=== PATIENT | male | born 1950 | race Caucasian/White ===

== ENCOUNTER → 2017-06-03 | Outpatient (REF) | payer MEDICARE, BC ==
[~2017-06-03] MED LIST: ASPI-1471 PO; ASPI-715 PO; CYAN25004 PO; DEXL60CA6 PO; DOCU-416 PO; FOLI-48 PO; HCTZ; LIS20 PO; LISI-374 PO; MECL25TA9 PO; METF-410 PO; METF-420 PO; NAPR220C12 PO; NEW CHOLESTEROL MED; OMEP-218 PO; ONDA4TAB PO; OXYC-854 PO; PRED20TA6 PO; SIMV-44 PO; SIMV-54 PO; TAMS0.4C25 PO
== END ==
LOC: ZZSENDIN 15:49
PROVIDERS: ATTEND Nurse Practitioner
DX: I25.118 Atherosclerotic heart disease of native coronary artery with other forms of angina pectoris (principal)
CPT/HCPCS: 82310; 82374; 82435; 82565; 82947; 84132; 84295; 84520

== ENCOUNTER → 2017-06-15 | Outpatient (CLI) | payer MEDICARE, BC | LOC: LAB 10:17 | PROVIDERS: ATTEND Nurse Practitioner | DX: I25.118 Atherosclerotic heart disease of native coronary artery with other forms of angina pectoris (principal) | CPT/HCPCS: 36415; 82310; 82374; 82435; 82565; 82947; 84132; 84295; 84520 ==

== ENCOUNTER 2017-06-19 11:28 | Emergency (ER) | payer MEDICARE, BC ==
[~2017-06-19] VITALS: Ht 5.1 cm; Wt 117.0 kg
[2017-06-19 11:33] VITALS: BP 154/91
--- NOTE | 2017-06-19 11:37 | ER Report ---
History and Physical Time Seen By MD: 11:36 Hx. of Stated Complaint: OPEN HEART SURGERY 4 WEEKS AGO. STATES HE FEELS RATTLY IN HIS LUNGS AND DOESN'T FEEL GOOD. NOT CURRENTLY SOB HPI/ROS CHIEF COMPLAINT: Cough, chest discomfort HISTORY OF PRESENT ILLNESS: 66-year-old male patient presents to emergency room with complaint of cough, chest discomfort. Patient states that this been going on since yesterday. He states that initially morning just started out of the blue. He states that when he coughs he coughs up a clear to white mucus. He states that he's not had any fevers, chills, nausea, vomiting or diarrhea. States his been eating and drinking just fine. He states that he has stopped taking any medication for this. Patient states that he is 4 weeks status post 2 vessel CABG. He states that he does have an appointment with his surgeon tomorrow. He is concerned because he is feeling "rattley" in his lungs. Patient states he does not feel short of breath. He states he's been using the pillow frequently to help support his chest when he coughs. REVIEW OF SYSTEMS: Respiratory: As noted above Cardiovascular: As noted above Gastrointestinal: No vomiting, no abdominal pain. Musculoskeletal: No back pain. Allergies: Coded Allergies: Sulfa (Sulfonamide Antibiotics) (Verified Allergy, Intermediate, LIVER ENZYMES ELEVATE, 06/19/17) Home Meds Active Scripts Metformin Hcl (METFORMIN HCL) 1,000 Mg Tablet, 1 TAB PO BID, #180 TAB Prov:ROSANNE LOVING MD 01/25/17 Reported Medications Metoprolol Tartrate (METOPROLOL TARTRATE) 25 Mg Tablet, 1 TAB PO BID, TAB 06/19/17 Ondansetron Hcl (ZOFRAN) 4 Mg Tablet, 4 MG PO Q12H, TAB 06/19/17 Dexlansoprazole (DEXILANT) 60 Mg Franky., 60 MG PO QAM 10/13/15 Simvastatin (SIMVASTATIN) 40 Mg Tablet, 40 MG PO QHS, #60 01/06/15 Tamsulosin Hcl (FLOMAX) 0.4 Mg Cap.er.24h, 0.4 MG PO DAILY 07/08/14 Discontinued Reported Medications Lisinopril (Lisinopril) 40 Mg Tablet, 40 MG PO QAM, 0 Refills 04/05/11 Past Medical/Surgical History Patient has a past medical history of hypertension, hyperlipidemia, reflux, BPH , arthritis, diabetes, actinic keratosis, alcohol use. Patient has a surgical history of LASIK surgery, tonsillectomy, IND of knee infection, colonoscopy, EGD, cholecystectomy, appendectomy, 2 vessel CABG. Patient has a family medical history of cancer. Reviewed Nurses Notes: Yes Hx Smoking: No (SMOKED < 1/2 PPD ABOUT 14 YEARS OFF AND ON) Smoking Status: Former Smoker Exposure to Second Hand Smoke?: No Hx Substance Use Disorder: No Hx Alcohol Use: Yes Constitutional Vital Sign - Last 24 Hours 06/19/17 06/19/17 06/19/17 11:32 11:33 11:43 Temp 98.5 Pulse 80 80 Resp 22 20 B/P (MAP) 154/91 (112) 154/91 Pulse Ox 96 94 O2 Delivery Room Air Physical Exam General Appearance: The patient is alert, has no immediate need for airway protection and no current signs of toxicity. ENT: Tympanic membranes are pearly-ventura, auditory canals are patent, mucous membranes are moist. Respiratory: Chest is non tender, lungs are clear to auscultation. Cardiac: regular rate and rhythm Gastrointestinal: Abdomen is soft and non tender, no masses, bowel sounds normal. Musculoskeletal: Neck: Neck is supple and non tender. Extremities have full range of motion and are non tender. Skin: No rashes or lesions. DIFFERENTIAL DIAGNOSIS: After history and physical exam differential diagnosis was considered for influenza, pneumonia, bronchitis, viral syndrome. Medical Decision Making Data Points Result Diagram: 06/19/17 1146 06/19/17 1146 Laboratory Hematology Test 06/19/17 11:46 Red Blood Count 4.33 M/uL (4.00-5.60) Mean Corpuscular Volume 81.0 fL (80.0-96.0) Mean Corpuscular Hemoglobin 26.6 pg (26.0-33.0) Mean Corpuscular Hemoglobin Concent 32.9 g/dL (32.0-36.0) Red Cell Distribution Width 14.6 % (11.5-14.5) Mean Platelet Volume 7.0 fL (7.2-11.1) Neutrophils (%) (Auto) 65.0 % (39.4-72.5) Lymphocytes (%) (Auto) 20.1 % (17.6-49.6) Monocytes (%) (Auto) 10.8 % (4.1-12.4) Eosinophils (%) (Auto) 3.5 % (0.4-6.7) Basophils (%) (Auto) 0.6 % (0.3-1.4) Nucleated RBC Relative Count (auto) 0.0 /100WBC Neutrophils # (Auto) 3.4 K/uL (2.0-7.4) Lymphocytes # (Auto) 1.0 K/uL (1.3-3.6) Monocytes # (Auto) 0.6 K/uL (0.3-1.0) Eosinophils # (Auto) 0.2 K/uL (0.0-0.5) Basophils # (Auto) 0.0 K/uL (0.0-0.1) Nucleated RBC Absolute Count (auto) 0.00 K/uL D-Dimer Quantitative (PE/DVT) 2.45 ug/ml (0-0.50) Sodium Level 137 mmol/L (137-145) Potassium Level 4.3 mmol/L (3.5-5.0) Chloride Level 98 mmol/L (98-107) Carbon Dioxide Level 24 mmol/L (22-30) Blood Urea Nitrogen 16 mg/dl (9-21) Creatinine 1.10 mg/dl (0.66-1.25) Glomerular Filtration Rate Calc > 60.0 Random Glucose 108 mg/dl (75-110) Calcium Level 9.4 mg/dl (8.4-10.2) Total Bilirubin 0.5 mg/dl (0.2-1.3) Aspartate Amino Transf (AST/SGOT) 28 U/L (0-35) Alanine Aminotransferase (ALT/SGPT) 38 U/L (0-56) Alkaline Phosphatase 73 U/L (0-126) Troponin I < 0.012 ng/ml B-Type Natriuretic Peptide 88 pg/ml (0-100) Total Protein 7.9 gm/dl (6.3-8.2) Albumin 4.2 g/dl (3.5-5.0) Influenza Virus Type A (PCR) Negative (NEGATIVE) Influenza Virus Type B (PCR) Negative (NEGATIVE) Chemistry Test 06/19/17 11:46 White Blood Count 5.2 k/uL (4.5-11.0) Red Blood Count 4.33 M/uL (4.00-5.60) Hemoglobin 11.5 g/dL (14.0-18.0) Hematocrit 35.0 % (42.0-52.0) Mean Corpuscular Volume 81.0 fL (80.0-96.0) Mean Corpuscular Hemoglobin 26.6 pg (26.0-33.0) Mean Corpuscular Hemoglobin Concent 32.9 g/dL (32.0-36.0) Red Cell Distribution Width 14.6 % (11.5-14.5) Platelet Count 220 K/uL (150-450) Mean Platelet Volume 7.0 fL (7.2-11.1) Neutrophils (%) (Auto) 65.0 % (39.4-72.5) Lymphocytes (%) (Auto) 20.1 % (17.6-49.6) Monocytes (%) (Auto) 10.8 % (4.1-12.4) Eosinophils (%) (Auto) 3.5 % (0.4-6.7) Basophils (%) (Auto) 0.6 % (0.3-1.4) Nucleated RBC Relative Count (auto) 0.0 /100WBC Neutrophils # (Auto) 3.4 K/uL (2.0-7.4) Lymphocytes # (Auto) 1.0 K/uL (1.3-3.6) Monocytes # (Auto) 0.6 K/uL (0.3-1.0) Eosinophils # (Auto) 0.2 K/uL (0.0-0.5) Basophils # (Auto) 0.0 K/uL (0.0-0.1) Nucleated RBC Absolute Count (auto) 0.00 K/uL D-Dimer Quantitative (PE/DVT) 2.45 ug/ml (0-0.50) Glomerular Filtration Rate Calc > 60.0 Calcium Level 9.4 mg/dl (8.4-10.2) Total Bilirubin 0.5 mg/dl (0.2-1.3) Aspartate Amino Transf (AST/SGOT) 28 U/L (0-35) Alanine Aminotransferase (ALT/SGPT) 38 U/L (0-56) Alkaline Phosphatase 73 U/L (0-126) Troponin I < 0.012 ng/ml B-Type Natriuretic Peptide 88 pg/ml (0-100) Total Protein 7.9 gm/dl (6.3-8.2) Albumin 4.2 g/dl (3.5-5.0) Influenza Virus Type A (PCR) Negative (NEGATIVE) Influenza Virus Type B (PCR) Negative (NEGATIVE) Coagulation Test 06/19/17 11:46 D-Dimer Quantitative (PE/DVT) 2.45 ug/ml EKG/Imaging EKG Interpretation 12 lead EKG: Rhythm: normal sinus rhythm with a ventricular rate of 81 bpm [place]: normal QRS: normal ST segments: normal Imaging EXAMINATION: CT CHEST PULMONARY ANGIOGRAM COMPARISON: None available HISTORY: Chest pain. Heart surgery 4 weeks ago. Elevated d-dimer. PROCEDURE: Pulmonary arterial phase imaging of the chest with 100 mL intravenous Isovue 370. Reconstruction of the source data set includes multiplanar 2D in the sagittal and coronal planes, and 3D reconstructed coronal slab MIP series. One of the following dose optimization techniques was utilized in the performance of this exam: Automated exposure control; adjustment of the mA and/ or kV according to the patient's size; or use of an iterative reconstruction technique. Specific details can be referenced in the facility's radiology CT exam operational policy. FINDINGS: Pulmonary vasculature: There is good contrast opacification of the pulmonary arterial system. No pulmonary embolism. Main pulmonary artery size is normal. Cardiac and mediastinum: Cardiac chamber size is within normal limits. Small homogeneous fairly low-attenuation pericardial effusion. Advanced coronary calcifications. Left internal mammary artery bypass. Trace retrosternal fluid. No discrete hematoma. There a few prominent nonspecific but likely reactive mediastinal lymph nodes. Lungs and pleura: Trace left pleural effusion. Minimal volume loss. No consolidation or nodule. No pneumothorax or edema. Airways: The central airways are patent. Upper abdomen: No evidence of acute disease within the visualized upper abdomen. Osseous structures: Midline sternotomy is intact with no evidence of dehiscence. No acute osseous abnormality. Incompletely visualized cervical spine fusion. Diffuse idiopathic skeletal hyperostosis. IMPRESSION: 1. No pulmonary embolism. 2. Mediastinal postoperative changes compatible with a recent sternotomy and coronary artery bypass as further described above. No definite CT findings of postoperative complication. 3. Trace left pleural effusion. 4. Additional nonacute findings as detailed above. Report Dictated By: Jean Hsu MD at 06/19/2017 12:50 PM Report E-Signed By: Jean Hsu MD at 06/19/2017 1:02 PM Examination: CHEST PA AND LAT Comparison: 07/08/2014. History: Chest Pain Findings: Cardiac silhouette is mildly enlarged. Sternotomy wires are midline and intact. No consolidation, nodule, or acute peribronchial inflammation. No pneumothorax, edema, or effusion. Cervical spine fusion. Diffuse idiopathic skeletal hyperostosis. IMPRESSION: 1. Cardiac silhouette enlargement is new since 07/08/2014. 2. No evidence of acute disease in the lungs. Report Dictated By: Jean Hsu MD at 06/19/2017 12:21 PM Report E-Signed By: Jean Hsu MD at 06/19/2017 12:23 PM ED Course/Re-evaluation ED Course Patient is admitted and examined, history and physical obtained. Differential diagnosis was considered. On examination lungs are clear, heart is regular. A CBC, CMP, troponin, d-dimer, BNP, influenza screen were done. Patient was negative for influenza, troponin was negative, CMP and CBC were unremarkable. BNP was 88. D-dimer was elevated at 2.4. Due to that a CT scan was done of the chest. The results were negative for pneumonia, pulmonary embolism. Chest x-ray is also been done previously which was also negative. I discussed the findings with the patient and his . I believe that we are looking at a head cold which causing the cough and chest congestion. We'll go ahead and discharge him home. He states [id number] cough and cold medication. He is follow-up with his surgeon tomorrow as previously scheduled. Patient verbalized understanding and agreement with plan. Decision to Disposition Date: Jun 19, 2017 Decision to Disposition Time: 13:31 Depart Departure Latest Vital Signs Vital Signs Date Time Temp Pulse Resp B/P (MAP) Pulse Ox O2 Delivery O2 Flow Rate FiO2 06/19/17 11:43 80 20 94 06/19/17 11:33 98.5 154/91 Room Air Impression: Primary Impression: Upper respiratory infection Condition: Improved Disposition: HOME OR SELF-CARE Referrals: RUSSELL SALAS DO (PCP) Patient Instructions: Upper Respiratory Infection (ED) Additional Instructions: Increase fluid intake. Get plenty of rest. Limit activity by how you feel. Follow up with your surgeon on Tuesday as previously scheduled. Return to the ER if condition worsens. Take cough and cold medication. Take Tylenol or Ibuprofen as needed for fevers. Problem Qualifiers Primary Impression: Upper respiratory infection URI type: unspecified viral URI Qualified Codes: J06.9 - Acute upper respiratory infection, unspecified PONCE MEDINA Jun 19, 2017 11:37
[2017-06-19] MEDS ORDERED: METO25TA93 PO (11:40)
[2017-06-19] MEDS ORDERED: ONDA4TAB97 PO (11:40)
[2017-06-19] MEDS ORDERED: ASPIRIN 81 MG CHEW PO ONE (11:45)
[2017-06-19 11:53] LABS: PLATELET COUNT, AUTOMATED 220 K/uL (150-450)
[2017-06-19] MEDS ORDERED: NS 0.9% 20 ML SDV 60 ML ONE (12:19)
[2017-06-19] MEDS ORDERED: IOPAMIDOL 76% 100 ML INFUS BTL 100 ML ONE (12:19)
--- NOTE | 2017-06-19 12:28 | RADIOLOGY IMAGING REPORT ---
FACILITY: [facility] - [place] PATIENT NAME: Kike Miller : 1950 MR: [id number] V: [id number] EXAM DATE: ORDERING PHYSICIAN: PONCE MEDINA TECHNOLOGIST: Location: [facility] [place] Patient: Kike Miller : 1950 Visit/Account:[id number] Date of Sevice: 06/19/2017 Examination: CHEST PA AND LAT Comparison: 07/08/2014. History: Chest Pain Findings: Cardiac silhouette is mildly enlarged. Sternotomy wires are midline and intact. No consolid ation, nodule, or acute peribronchial inflammation. No pneumothorax, edema, or effusion. Cervical spi ne fusion. Diffuse idiopathic skeletal hyperostosis. IMPRESSION: 1. Cardiac silhouette enlargement is new since 07/08/2014. 2. No evidence of acute disease in the lungs. Report Dictated By: Jean Hsu MD at 06/19/2017 12:21 PM Report E-Signed By: Jean Hsu MD at 06/19/2017 12:23 PM WSN:[id number]
--- NOTE | 2017-06-19 12:50 | EKG ---
FACILITY: [facility] PATIENT NAME: MELONY PERES : [id number] MR: [id number] V: [id number] EXAM DATE: ORDERING PHYSICIAN: PONCE MEDINA TECHNOLOGIST: NAIDA Mckeon Reason : CHEST PAIN Blood Pressure : / mmHG Vent. Rate : 081 BPM Atrial Rate : 081 BPM P-R Int : 178 ms QRS Dur : 098 ms QT Int : 384 ms P-R-T Axes : 069 063 072 degrees QTc Int : 446 ms Normal sinus rhythm Normal ECG When compared with ECG of 09-AUG-2015 13:04, Previous ECG has undetermined rhythm, needs review Confirmed by JESUS PERALTA ([id number]) on 06/19/2017 8:19:27 PM Referred By: LUL Confirmed By:JESUS PERALTA
--- NOTE | 2017-06-19 13:06 | RADIOLOGY IMAGING REPORT ---
FACILITY: [facility] [place] PATIENT NAME: Kike Miller : 1950 MR: [id number] V: [id number] EXAM DATE: ORDERING PHYSICIAN: PONCE MEDINA TECHNOLOGIST: Location: [facility] Patient: Kike Miller : 1950 Visit/Account:[id number] Date of Sevice: 06/19/2017 EXAMINATION: CT CHEST PULMONARY ANGIOGRAM COMPARISON: None available HISTORY: Chest pain. Heart surgery 4 weeks ago. Elevated d-dimer. PROCEDURE: Pulmonary arterial phase imaging of the chest with 100 mL intravenous Isovue 370. Reconstr uction of the source data set includes multiplanar 2D in the sagittal and coronal planes, and 3D aldo nstructed coronal slab MIP series. One of the following dose optimization techniques was utilized in the performance of this exam: Autom ated exposure control; adjustment of the mA and/or kV according to the patient's size; or use of an i terative reconstruction technique. Specific details can be referenced in the facility's radiology C T exam operational policy. FINDINGS: Pulmonary vasculature: There is good contrast opacification of the pulmonary arterial system. No pul monary embolism. Main pulmonary artery size is normal. Cardiac and mediastinum: Cardiac chamber size is within normal limits. Small homogeneous fairly low-a ttenuation pericardial effusion. Advanced coronary calcifications. Left internal mammary artery bypas s. Trace retrosternal fluid. No discrete hematoma. There a few prominent nonspecific but likely react christiano mediastinal lymph nodes. Lungs and pleura: Trace left pleural effusion. Minimal volume loss. No consolidation or nodule. No pn eumothorax or edema. Airways: The central airways are patent. Upper abdomen: No evidence of acute disease within the visualized upper abdomen. Osseous structures: Midline sternotomy is intact with no evidence of dehiscence. No acute osseous abn ormality. Incompletely visualized cervical spine fusion. Diffuse idiopathic skeletal hyperostosis. IMPRESSION: 1. No pulmonary embolism. 2. Mediastinal postoperative changes compatible with a recent sternotomy and coronary artery bypass a s further described above. No definite CT findings of postoperative complication. 3. Trace left pleural effusion. 4. Additional nonacute findings as detailed above. Report Dictated By: Jean Hsu MD at 06/19/2017 12:50 PM Report E-Signed By: Jean Hsu MD at 06/19/2017 1:02 PM WSN:[id number]
== END 2017-06-19 13:40 | disposition home or self-care (01) ==
LOC: ER 11:44
DX: J06.9 Acute upper respiratory infection, unspecified (principal); Z95.1 Presence of aortocoronary bypass graft; R79.89 Other specified abnormal findings of blood chemistry; J90 Pleural effusion, not elsewhere classified
CPT/HCPCS: 71046; 71275; 83880; 84484; 85025; 85379; 87502; 93005; 99284; A9270; J7050; Q9967; 82040; 82247; 82310; 82374; 82435; 82565; 82947; 84075; 84132; 84155; 84295; 84450; 84460; 84520

== ENCOUNTER → 2017-07-14 | Outpatient (CLI) | payer MEDICARE, BC ==
[~2017-07-14] MED LIST changes: +METO25TA93 PO; +ONDA4TAB97 PO
[2017-07-14 09:52] LABS: LDL CHOLESTEROL 53 mg/dl
--- NOTE | 2017-07-14 17:37 | RADIOLOGY IMAGING REPORT ---
FACILITY: [facility] PATIENT NAME: MELONY PERES : [id number] MR: [id number] V: [id number] EXAM DATE: ORDERING PHYSICIAN: ELYSIA NEAL TECHNOLOGIST: Piter Benoit EXAMINATION:TWO-DIMENSIONAL ECHOCARDIOGRAPH REASON:CAD 2D Measurements (normal values in centimeters) LV endLV endRV endVent.LV PostAorticLeftPercent DiastolicSystolicDiastolicSeptumWallRootAtriumShortening (3.5-5.7)(0.9-2.6)(0.6-1.1)(0.6-1.1)(2.0-3.7)(1.9-4.0)(25-35%) [id number]% STROKE VOLUME: 101ml ESTIMATED EJECTION FRACTION:67% PARASTERNAL LONG AXIS: Overall left ventricular systolic function does appear to be normal. Right ventricle appears to be the upper range of normal in size. The view is somewhat technically difficult. PARASTERNAL SHORT AXIS: Overall left ventricular systolic function again appears to be normal. The posterior wall appears to be mildly thickened. No wall motion abnormalities are noted. Aortic valve is trileaflet in configuration & appears to open normally. Trace of pulmonic insufficiency is noted. Color examination of the aortic valve was unremarkable. Color examination of the tricuspid valve reveals a trace of tricuspid insufficiency. APICAL FOUR AND TWO CHAMBER: Again normal left ventricular systolic function. Right ventricle appears to be mildly enlarged. Left atrium & right atrium measure within normal ranges. Left ventricle is also the upper range of normal in size. Color examination of the aortic valve was unremarkable. The aortic valve area was measured within normal ranges at 3.1cm2. Mitral valve area also measured within normal ranges at 3.5cm2. Left atrial & right atrial volumes are measured within normal ranges at 19ml/m2. SUBCOSTAL VIEW: Subcostal view was difficult but no pericardial effusion was noted. Doppler examination of the mitral valve in diastole does reveal the A wave > E wave. OVERALL IMPRESSION: 1. Normal left ventricular ejection fraction of 67% with a mild decrease in diastolic function. 2. Normal chamber sizes but the right ventricle is the upper range of normal in size as well as the left ventricle being the upper range of normal in size. 3. A trileaflet aortic valve with no abnormalities. 4. A trace of mitral, tricuspid & pulmonic insufficiency with normal right ventricular systolic pressures of 30mm Hg. 5. Mild eccentric left ventricular thickening more along the posterior wall but no evidence for any outflow tract obstruction. 6. Echocardiograph was somewhat technically difficult. Dictated by: Yuval Perez M.D. on 07/14/2017 at 13:41 Transcribed by: SHANTAL on 07/14/2017 at 14:38 Approved by: Yuval Perez M.D. on 07/14/2017 at 17:36 [facility]
== END ==
LOC: US 01:12
PROVIDERS: ATTEND Internal Medicine
DX: I50.30 Unspecified diastolic (congestive) heart failure (principal); I34.0 Nonrheumatic mitral (valve) insufficiency; I37.1 Nonrheumatic pulmonary valve insufficiency; E78.00 Pure hypercholesterolemia, unspecified
CPT/HCPCS: 36415; 82040; 82247; 82310; 82374; 82435; 82465; 82565; 82947; 83718; 84075; 84132; 84155; 84295; 84450; 84460; 84478; 84520; 93306

== ENCOUNTER 2017-09-07 09:00 | Outpatient (RCR) | payer MEDICARE, BC ==
[2017-06-10 15:34] VITALS: BP 108/78
[2017-06-10 15:35] VITALS: BP 118/70
--- NOTE | 2017-06-10 16:17 | CARDIAC REHAB PLAN OF CARE ---
Physician: Ila GOSS Patient is being seen: Preston Cardoso Medical Diagnosis: CABG x 2 Date of Initial Evaluation: 2017 SHORT TERM GOALS Short Term Goals Due Date: 07/08/17 Short Term Goals: 66 year old male, 6'2", 270 pounds comes to cardiac rehab after a CABG procedure on May 202017. Cardiac catheterization revealed a left main stenosis of 20%, LAD stenosis of 95%, left circumflex stenosis of 20%, and right coronary artery stenosis of 100 %. LVSF 50%. Multivessel coronary artery disease. Left internal mammary artery to left anterior descending coronary artery, and the saphenous vein graft to right coronary artery. Short term goals are to begin cardiac rehab on a regular three session a week protocol and will work up to achieving 150 minutes a week of a moderate level of cardio exercise with weight resistance exercise added in at least twice a week. Patient currently under a 10 pound weight limit post CABG surgery. Patient also needs to adjust diet to improve heart health, and control prediabetic category (A1c at 6.3), and allow for safe weight loss towards his healthy BMI max of 195 pounds. Short Term Goals Met: Short Term Goals Not Met Due To: ROLL UP HELPER GOALS Jail Goal Due Date: 08/08/17 Jail Goals: correction goals will be to remain consistent with exercise protocol throught the 36 visit phase II program and to also remain consistent with healthy meals for cardiac and overall better health, control blood sugar levels, and weight loss. Patient will be encourage to exercise more then the three visits for cardiac rehab to achieve the minimum of 150 minutes of a moderate level of cardio exercise. Jail Goals Met: Jail Goals Not Met Due To: PATIENT'S GOALS Patient Goals Due Date: 07/08/17 Patient Goals: Patient goals are to gain better health, increase endurance, and energy level. Improve cardiac and overall health, and remain active. Patient Goals Met: Patient Goals Not Met Due To: Cardiac Rehabilitation Plan of Care Comment: Cardiac rehab staff will monitor, record, and evaluate vitals, ECG, and exercise results to provide the best care throughout the 36 visit phase II program. CR staff will educate and motivate the patient during visits for rehab. JOSE
[2017-06-13 12:57] VITALS: BP 108/74
[2017-06-13 12:58] VITALS: BP 104/70
[2017-06-15 14:29] VITALS: BP 122/76
[2017-06-15 14:32] VITALS: BP 108/68
[2017-06-17 17:37] VITALS: BP 122/78
[2017-06-17 17:38] VITALS: BP 98/70
[2017-06-20 17:17] VITALS: BP 120/72
[2017-06-20 17:18] VITALS: BP 110/72
[2017-06-22 18:10] VITALS: BP 124/72
[2017-06-22 18:11] VITALS: BP 108/68
[2017-06-24 12:36] VITALS: BP 116/74
[2017-06-24 12:37] VITALS: BP 110/64
[2017-06-29 13:17] VITALS: BP 126/72
[2017-07-01 17:52] VITALS: BP 118/78
[2017-07-01 17:53] VITALS: BP 138/80
[2017-07-04 13:17] VITALS: BP 142/80
[2017-07-04 13:19] VITALS: BP 138/80
[2017-07-06 13:20] VITALS: BP 124/80
[2017-07-06 13:21] VITALS: BP 112/74
[2017-07-08 13:23] VITALS: BP_SYST 112; BP_SYST 122; BP_DIAS 74; BP_DIAS 86
[2017-07-11 13:35] VITALS: BP 135/85
[2017-07-11 13:36] VITALS: BP 118/68
[2017-07-13 10:16] VITALS: BP 136/84
[2017-07-13 10:17] VITALS: BP 126/76
--- NOTE | 2017-07-13 17:28 | CARDIAC REHAB PLAN OF CARE ---
Physician: Rubi NIEVES Patient is being seen: Preston Cardoso Medical Diagnosis: CABG x 2 Date of Initial Evaluation: 2017 SHORT TERM GOALS Short Term Goals Due Date: 08/13/17 Short Term Goals: 66 year old male, 6'2", 270 pounds comes to cardiac rehab after a CABG procedure on May 202017. Cardiac catheterization revealed a left main stenosis of 20%, LAD stenosis of 95%, left circumflex stenosis of 20%, and right coronary artery stenosis of 100 %. LVSF 50%. Multivessel coronary artery disease. Left internal mammary artery to left anterior descending coronary artery, and the saphenous vein graft to right coronary artery. Short term goals are to begin cardiac rehab on a regular three session a week protocol and will work up to achieving 150 minutes a week of a moderate level of cardio exercise with weight resistance exercise added in at least twice a week. Patient currently under a 10 pound weight limit post CABG surgery. Patient also needs to adjust diet to improve heart health, and control prediabetic category (A1c at 6.3), and allow for safe weight loss towards his healthy BMI max of 195 pounds. Short Term Goals Met: Patient has made 15 visits for cardiac rehab and tolerates up to 50 minutes of moderate level cardio exercise followed by weight resistance exercise. During exercise SPO2 levels are maintained in the 90's on room air and the residential monitor show a NSR-ST without ectopy and rates up to 118. Short Term Goals Not Met Due To: SKILLED NURSING GOALS [facility] Goal Due Date: 09/12/17 Pluck Trimmer Goals: oil heaterman goals are to remain consistent with exercise and consistent with healthy foods to improve prediabetic, cardiac, weight, and overall health concerns. Pluck Trimmer Goals Met: Patient has been consistent with visits and has increased duration and intensity of exercise. [facility] Goals Not Met Due To: PATIENT'S GOALS Patient Goals Due Date: 08/13/17 Patient Goals: Patient goals remain to improve cardiac and overall health and to be able to remain active. Patient Goals Met: Patient is motivated by improvements made in exercise and reports feeling better with better energy and endurance. Patient Goals Not Met Due To: Cardiac Rehabilitation Plan of Care Comment: Cardiac rehab staff will continue to monitor, record, and evaluate vitals, ECG, and exercise results to provide the best plan of care for the patient throughout the 36 visit phase II program. CR staff will motivate and educate the patient during visits for rehab. JOSE
[2017-07-15 13:31] VITALS: BP 128/82
[2017-07-15 13:32] VITALS: BP 122/74
[2017-07-18 13:37] VITALS: BP_SYST 102; BP_SYST 118; BP_DIAS 62; BP_DIAS 82
[2017-07-20 13:43] VITALS: BP 132/80
[2017-07-20 13:45] VITALS: BP 120/80
[2017-07-22 13:05] VITALS: BP 130/82
[2017-07-22 13:06] VITALS: BP 112/76
[2017-07-25 13:05] VITALS: BP 132/80
[2017-07-25 13:06] VITALS: BP 115/72
[2017-07-27 12:56] VITALS: BP 130/80
[2017-07-27 12:57] VITALS: BP 115/74
[2017-07-29 13:04] VITALS: BP 130/80
[2017-07-30 13:25] VITALS: BP 126/82
[2017-08-01 13:24] VITALS: BP 130/82
[2017-08-01 13:27] VITALS: BP 110/68
[2017-08-03 13:18] VITALS: BP_SYST 120; BP_SYST 128; BP_DIAS 78; BP_DIAS 88
[2017-08-05 13:09] VITALS: BP 122/78
[2017-08-05 13:10] VITALS: BP 122/74
[2017-08-08 13:00] VITALS: BP 136/82
[2017-08-08 13:01] VITALS: BP 120/80
[2017-08-10 13:12] VITALS: BP_SYST 124; BP_SYST 132; BP_DIAS 72; BP_DIAS 80
[2017-08-12 16:45] VITALS: BP 132/82
[2017-08-12 16:46] VITALS: BP 110/78
[2017-08-15 12:59] VITALS: BP 120/82
[2017-08-15 13:01] VITALS: BP 108/76
--- NOTE | 2017-08-15 17:36 | CARDIAC REHAB PLAN OF CARE ---
Physician: Ila GOSS Patient is being seen: Preston Cardoso Medical Diagnosis: CABG x 2 Date of Initial Evaluation: 06/10/2017 SHORT TERM GOALS Short Term Goals Due Date: 09/14/17 Short Term Goals: 66 year old male, 6'2", 270 pounds comes to cardiac rehab after a CABG procedure on May 202017. Cardiac catheterization revealed a left main stenosis of 20%, LAD stenosis of 95%, left circumflex stenosis of 20%, and right coronary artery stenosis of 100 %. LVSF 50%. Multivessel coronary artery disease. Left internal mammary artery to left anterior descending coronary artery, and the saphenous vein graft to right coronary artery. Short term goals are to begin cardiac rehab on a regular three session a week protocol and will work up to achieving 150 minutes a week of a moderate level of cardio exercise with weight resistance exercise added in at least twice a week. Patient currently under a 10 pound weight limit post CABG surgery. Patient also needs to adjust diet to improve heart health, and control prediabetic category (A1c at 6.3), and allow for safe weight loss towards his healthy BMI max of 195 pounds. Short Term Goals Met: Patient has made 29 visits for cardiac rehab and tolerates 50 minutes of a moderate level of cardio exercise, followed by weight resistance exercise. During exercise SPO2 values remain in the 90's on room air and the laboratory monitor shows a NSR-ST without ectopy and rates of 111 -127. 72-82% of his max HR. Short Term Goals Not Met Due To: RN NURSERY GOALS Bike Mechanic Goal Due Date: 10/15/17 Residential Goals: Patient needs to remain consistent with cardio exercise and a heart healthy diet. Patients ongoing concerns of pre-diabetes, cardiac, and weight control can all benefit from continued exercise and healthy meals. Bike Mechanic Goals Met: Patient has improved duration and intensity of exercise, and has shown better energy, strength, and stamina. Bike Mechanic Goals Not Met Due To: The only goal not showing a big improvement has been weight loss. PATIENT'S GOALS Patient Goals Due Date: 09/14/17 Patient Goals: Patient goals are to improve cardiac, and overall health with consistent exercise and dietary changes. Patients wants to remain active and avoid future cardiac events. Patient Goals Met: Patient remains motivated by improvements in exercise and feeling stronger with better energy. Patient Goals Not Met Due To: Cardiac Rehabilitation Plan of Care Comment: The cardiac rehab staff will continue to monitor, record, and evaluate vitals, ECG, and exercise results to provide the best plan of care throughout the 36 visit phase II program. CR staff will continue to motivate and educate the patient during visits for rehab. JOSE
[2017-08-17 13:23] VITALS: BP 132/90
[2017-08-17 13:26] VITALS: BP 100/72
[2017-08-19 13:11] VITALS: BP_SYST 122; BP_SYST 142; BP_DIAS 76; BP_DIAS 82
[2017-08-22 13:13] VITALS: BP 134/82
[2017-08-22 13:14] VITALS: BP 124/76
[2017-08-24 13:24] VITALS: BP 132/88
[2017-08-24 13:25] VITALS: BP 122/78
[2017-08-26 13:37] VITALS: BP_SYST 100; BP_SYST 126; BP_DIAS 70; BP_DIAS 82
[2017-08-31 13:04] VITALS: BP_SYST 122; BP_SYST 144; BP_DIAS 76; BP_DIAS 80
[2017-09-07 13:21] VITALS: BP_SYST 128; BP_SYST 132; BP_DIAS 80; BP_DIAS 82
== END 2017-09-07 18:00 | disposition home or self-care (01) ==
LOC: CARD 09:00
PROVIDERS: ATTEND Internal Medicine
DX: I25.10 Atherosclerotic heart disease of native coronary artery without angina pectoris (principal); I10 Essential (primary) hypertension; Z95.1 Presence of aortocoronary bypass graft; Z87.891 Personal history of nicotine dependence; R00.0 Tachycardia, unspecified
CPT/HCPCS: 93798

== ENCOUNTER → 2017-10-11 | Outpatient (CLI) | payer MEDICARE, BC ==
[~2017-10-11] MED LIST changes: -METF-410 PO; +METF-411 PO; -METF-420 PO; +METF-421 PO
--- NOTE | 2017-10-11 16:37 | RADIOLOGY IMAGING REPORT ---
FACILITY: [facility] - [place] PATIENT NAME: Kike Miller : 1950 MR: [id number] V: [id number] EXAM DATE: ORDERING PHYSICIAN: MAE MENDEZ TECHNOLOGIST: Location: [facility] [place] Patient: Kike Miller : 1950 Visit/Account:[id number] Date of Sevice: 10/11/2017 CHEST W/O CONTRAST History: Chest and rib pain TECHNIQUE: Contiguous axial images were performed through the chest to the level of the adrenal gla nds. No IV contrast was administered. Coronal and sagittal reformatting was also performed. Dose Lowe ring Technique One of the following dose optimization techniques was utilized in the performance of this exam: Autom ated exposure control; adjustment of the mA and/or kV according to the patient's size; or use of an i terative reconstruction technique. Specific details can be referenced in the facility's radiology C T exam operational policy. COMPARISON STUDIES: June 19, 2017. Lungs / Pleura: Previously noted left pleural effusion and adjacent atelectasis has resolved. No e vidence of acute pulmonary consolidation, pleural effusion, pneumomediastinum or pneumothorax. Mediastinum/nodes: Previously noted prominent mediastinal lymph nodes are slightly less prominent at this time Heart and vessels: Previous pericardial effusion has resolved. Advanced coronary artery calcificati ons again seen. Musculoskeletal / Body wall: Postsurgical changes from anterior fusion at the cervical thoracic estee ction there are extensive spondylotic changes in the thoracic spine Upper abdomen: Postsurgical changes from a cholecystectomy. IMPRESSION: Previously described mediastinal lymph nodes are slightly less prominent Previous pericardial effusion has resolved Advanced coronary artery calcination is again noted Previously noted left pleural effusion and adjacent atelectasis has resolved Additional chronic findings as described Report Dictated By: Valeria Dumont MD at 10/11/2017 4:24 PM Report E-Signed By: Valeria Dumont MD at 10/11/2017 4:33 PM WSN:[email or web address]
== END ==
LOC: CT 10:04
PROVIDERS: ATTEND Orthopaedic Surgery
DX: I25.10 Atherosclerotic heart disease of native coronary artery without angina pectoris (principal)
CPT/HCPCS: 71250

== ENCOUNTER 2018-03-10 09:32 | Emergency (ER) | payer MEDICARE, BC ==
[~2018-03-10 09:32] MED LIST changes: -METF-411 PO; -METF-421 PO; +METF-450 PO; +METF-452 PO
[2018-03-10 09:38] VITALS: BP 153/93
[2018-03-10] MEDS ORDERED: METHOCARBAMOL 500 MG TAB PO ONE (09:50)
--- NOTE | 2018-03-10 10:09 | ER Report ---
History and Physical Time Seen By MD: 10:07 Hx. of Stated Complaint: PATIENT REPORTS A FALL ONTO HIS BACK ABOUT AN HOUR AGO. HE IS REPORTING THORACIC AND LUMBAR PAIN HPI/ROS CHIEF COMPLAINT: Thoracic and lumbar pain HISTORY OF PRESENT ILLNESS: Patient is a 67-year-old male who was loading some objects onto the back of the pickup truck when the gate fell. He fell backwards landing onto his thoracic and lumbar spine. His complaining of severe pain to both the upper back and lower back and also along the right side of the ribs. The injury occurred approximately one hour ago. He denies any neck pain. He denies any head injury or loss of consciousness. He is on no blood thinners. REVIEW OF SYSTEMS: Respiratory: No cough, no dyspnea. Cardiovascular: No chest pain, no palpitations. Gastrointestinal: No vomiting, no abdominal pain. Musculoskeletal: Thoracic and lumbar pain Allergies: Coded Allergies: Sulfa (Sulfonamide Antibiotics) (Verified Allergy, Intermediate, LIVER ENZYMES ELEVATE, 06/19/17) Home Meds Active Scripts Methocarbamol (ROBAXIN-750) 750 Mg Tablet, 1500 MG PO TID for Muscle Relaxant, #30 TAB 0 Refills Prov:ZITA PERRY MD 03/10/18 Ondansetron Hcl (ZOFRAN) 4 Mg Tablet, 4 MG PO Q8H for Nausea, #15 TAB 0 Refills Prov:ZITA PERRY MD 03/10/18 Oxycodone Hcl/Acetaminophen (PERCOCET 5-325 MG TABLET) 1 Each Tablet, 1-2 EACH PO Q6H for PAIN, #30 TAB 0 Refills no more than 6 tablets in a 24 hour period Prov:ZITA PERRY MD 03/10/18 Simvastatin (SIMVASTATIN) 40 Mg Tablet, 40 MG PO QHS, #60 TAB Prov:ROSANNE LOVING MD 08/01/17 Metformin Hcl (METFORMIN HCL) 1,000 Mg Tablet, 1 TAB PO BID, #180 TAB Prov:ROSANNE LOVING MD 01/25/17 Reported Medications Metoprolol Tartrate (METOPROLOL TARTRATE) 25 Mg Tablet, 1 TAB PO BID, TAB 06/19/17 Ondansetron Hcl (ZOFRAN) 4 Mg Tablet, 4 MG PO Q12H, TAB 06/19/17 Dexlansoprazole (DEXILANT) 60 Mg , 60 MG PO QAM 6/6/16 Tamsulosin Hcl (FLOMAX) 0.4 Mg Cap.er.24h, 0.4 MG PO DAILY 07/08/14 Past Medical/Surgical History Hypertension Hx Smoking: No (SMOKED < 1/2 PPD ABOUT 14 YEARS OFF AND ON) Smoking Status: Former Smoker Exposure to Second Hand Smoke?: No Hx Substance Use Disorder: No Hx Alcohol Use: Yes Constitutional Vital Sign - Last 24 Hours 03/10/18 09:38 Temp 97.9 Pulse 86 Resp 20 B/P (MAP) 153/93 Pulse Ox 90 O2 Delivery Room Air Physical Exam General appearance: alert no distress. Back: Thoracic spine patient admits to pain to the lower thoracic spine. There is no obvious contusion or deformity. No obvious step-off to spine. Lumbar spine pain to the entire lumbar region. It is no obvious deformity or step-offs noted There is a small abrasion to the left side of the paraspinal area. Gastroinal: Abdomen is soft, non tender, no masses.. Skin: No lesions and no rashes. Vascular: Normal capillary refill and pulses to feet. Neurological: Motor function: leg strength normal and symmetric for both legs Sensory function: normal for all leg dermatomes. Straight leg raise negative to 70 degrees. Reflexes normal bilaterally on legs. Medical Decision Making Data Points Laboratory Hematology Test 03/10/18 11:55 Urine Color Yellow Urine Clarity Clear Urine pH 5.0 pH (4.8-9.5) Urine Specific [place] 1.020 Urine Protein Negative mg/dL (NEGATIVE) Urine Glucose (UA) 50 mg/dL (NEGATIVE) Urine Ketones Negative mg/dL (NEGATIVE) Urine Blood Negative (NEGATIVE) Urine Nitrite Negative (NEGATIVE) Urine Bilirubin Negative (NEGATIVE) Urine Urobilinogen Negative mg/dL (0.2-1.9) Urine Leukocyte Esterase Negative (NEGATIVE) Urine RBC 1 /HPF (0-2/HPF) Urine WBC 2 /HPF (0-5/HPF) Urine Squamous Epithelial Cells Moderate /LPF (</=FEW) Urine Bacteria Negative /HPF (NONE-FEW) Urine Hyaline Casts Few /LPF (NONE-FEW) Urine Mucus Few /HPF (NONE-FEW) Chemistry Test 03/10/18 11:55 Urine Color Yellow Urine Clarity Clear Urine pH 5.0 pH (4.8-9.5) Urine Specific [place] 1.020 Urine Protein Negative mg/dL (NEGATIVE) Urine Glucose (UA) 50 mg/dL (NEGATIVE) Urine Ketones Negative mg/dL (NEGATIVE) Urine Blood Negative (NEGATIVE) Urine Nitrite Negative (NEGATIVE) Urine Bilirubin Negative (NEGATIVE) Urine Urobilinogen Negative mg/dL (0.2-1.9) Urine Leukocyte Esterase Negative (NEGATIVE) Urine RBC 1 /HPF (0-2/HPF) Urine WBC 2 /HPF (0-5/HPF) Urine Squamous Epithelial Cells Moderate /LPF (</=FEW) Urine Bacteria Negative /HPF (NONE-FEW) Urine Hyaline Casts Few /LPF (NONE-FEW) Urine Mucus Few /HPF (NONE-FEW) Urinalysis Test 03/10/18 11:55 Urine Color Yellow Urine Clarity Clear Urine pH 5.0 pH (4.8-9.5) Urine Specific [place] 1.020 Urine Protein Negative mg/dL (NEGATIVE) Urine Glucose (UA) 50 mg/dL (NEGATIVE) Urine Ketones Negative mg/dL (NEGATIVE) Urine Blood Negative (NEGATIVE) Urine Nitrite Negative (NEGATIVE) Urine Bilirubin Negative (NEGATIVE) Urine Urobilinogen Negative mg/dL (0.2-1.9) Urine Leukocyte Esterase Negative (NEGATIVE) Urine RBC 1 /HPF (0-2/HPF) Urine WBC 2 /HPF (0-5/HPF) Urine Squamous Epithelial Cells Moderate /LPF (</=FEW) Urine Bacteria Negative /HPF (NONE-FEW) Urine Hyaline Casts Few /LPF (NONE-FEW) Urine Mucus Few /HPF (NONE-FEW) EKG/Imaging Imaging FACILITY: [facility] [place] PATIENT NAME: Kike Miller : 1950 MR: [id number] V: [id number] EXAM DATE: ORDERING PHYSICIAN: ZITA PERRY TECHNOLOGIST: Location: [facility] [place] Patient: Kike Miller : 1950 Visit/Account:[id number] Date of Sevice: 03/10/2018 CHEST PA AND LAT COMPARISON: June 19, 2017. HISTORY: trauma FINDINGS: CARDIAC/VASC: Mild stable cardiomegaly. Unremarkable pulmonary vasculature. MEDIASTINUM: There is no abnormal widening. Postoperative changes are present. LUNGS/PLEURA: No pneumothorax. No significant pulmonary parenchymal abnormalities. No effusion or pleural thickening. BONES: No fracture or visible bony lesion. C-spine fusion plate near the cervicothoracic junction. No appreciable rib fractures within the limitations of chest x-ray technique. Multilevel bridging osteophytes, thoracic spine. OTHER:Negative. IMPRESSION: No radiographic evidence of acute traumatic chest injury. Report Dictated By: Garrison Hammer at 03/10/2018 11:29 AM Report E-Signed By: Garrison Hammer at 03/10/2018 11:31 AM WSN:[id number] FACILITY: [facility] [place] PATIENT NAME: Kike Miller : 1950 MR: [id number] V: [id number] EXAM DATE: ORDERING PHYSICIAN: ZITA PERRY TECHNOLOGIST: Location: [facility] [place] Patient: Kike Miller : 1950 Visit/Account:[id number] Date of Sevice: 03/10/2018 BILATERAL RIBS COMPARISON: PA lateral chest x-ray same date. HISTORY: trauma TECHNIQUE: 4 views of the right and left lower ribs were obtained. FINDINGS: BONES: No acute rib fractures or focal rib lesions. Degenerative changes, visualized spine. SOFT TISSUES: Negative. No visible soft tissue swelling. OTHER: Visualized lungs are unremarkable for non-dedicated technique. Postoperative changes in the mediastinum. IMPRESSION: No acute right or left rib fractures. Report Dictated By: Garrison Hammer at 03/10/2018 11:31 AM Report E-Signed By: Garrison Hammer at 03/10/2018 11:33 AM WSN:[id number] FACILITY: [facility] [place] PATIENT NAME: Kike Miller : 1950 MR: [id number] V: [id number] EXAM DATE: [id number] ORDERING PHYSICIAN: ZITA PERRY TECHNOLOGIST: Location: [facility] [place] Patient: Kike Miller : 1950 Visit/Account:[id number] Date of Sevice: 03/10/2018 THORACIC SPINE 3 VIEWS COMPARISON: None. HISTORY: trauma TECHNIQUE: Thoracic spine radiographs (3 views including a lateral swimmer's view) FINDINGS: ALIGNMENT: Normal alignment. VERTEBRAL BODIES: Intact vertebral body heights without fracture or osseous lesion. Moderate lateral endplate spurring and multilevel bridging osteophytes anteriorly throughout the thoracic spine. The lower C-spine fusion plate is noted. DISC SPACES: No significant disc space narrowing. OTHER: Visualized ribs are unremarkable. IMPRESSION: No acute fracture or malalignment in the thoracic spine. Report Dictated By: Garrison Hammer at 03/10/2018 11:33 AM Report E-Signed By: Garrison Hammer at 03/10/2018 11:34 AM WSN:[email or web address] FACILITY: [facility] [place] PATIENT NAME: Kike Miller : 1950 MR: [id number] V: [id number] EXAM DATE: ORDERING PHYSICIAN: ZITA PERRY TECHNOLOGIST: Location: [facility] [place] Patient: Kike Miller : 1950 Visit/Account:[id number] Date of Sevice: 03/10/2018 LUMBAR SPINE 2 OR 3 VIEW COMPARISON: None. HISTORY: trauma TECHNIQUE: Lumbar spine radiographs (3 views) FINDINGS: ALIGNMENT: First-degree anterolisthesis of about 5 mm at L5-S1. There are 5 lumbar vertebral bodies. VERTEBRAL BODIES: Intact vertebral body heights without fracture or osseous lesion. Moderate anterior, mild lateral endplate spurring throughout the lumbar spine with moderate L4-5 and L5-S1 facet joint hypertrophy bilaterally. DISC SPACES: Mild L5-S1, moderate L1-2 and L2-3 disc height loss. SACROILIAC JOINTS: Unremarkable. OTHER: Negative. IMPRESSION: First-degree anterolisthesis of about 5 mm at L5-S1. No acute fractures in the lumbar spine. Moderate degenerative changes. Report Dictated By: Garrison Hammer at 03/10/2018 11:34 AM Report E-Signed By: Garrison Hammer at 03/10/2018 11:35 AM WSN:[email or web address] ED Course/Re-evaluation ED Course 03/10/2018 10:09:24 am at this time will be to perform x-rays of the thoracic and lumbar area as well as the ribs bilaterally. We'll also obtain a urinalysis looking for gross hematuria. I will treat pain with Percocet and Robaxin Decision to Disposition Date: Mar 10, 2018 Decision to Disposition Time: 12:09 Depart Departure Latest Vital Signs Vital Signs Date Time Temp Pulse Resp B/P (MAP) Pulse Ox O2 Delivery O2 Flow Rate FiO2 03/10/18 09:38 97.9 86 20 153/93 90 Room Air Impression: Primary Impression: Back pain Condition: Improved Disposition: HOME OR SELF-CARE Referrals: RUSSELL SALAS DO (PCP) MAE MENDEZ MD call for an appointment if symptoms do not improve after 7 days New Scripts Methocarbamol (ROBAXIN-750) 750 Mg Tablet 1500 MG PO TID for Muscle Relaxant, #30 TAB 0 Refills Prov: ZITA PERRY MD 03/10/18 Ondansetron Hcl (ZOFRAN) 4 Mg Tablet 4 MG PO Q8H for Nausea, #15 TAB 0 Refills Prov: ZITA PERRY MD 03/10/18 Oxycodone Hcl/Acetaminophen (PERCOCET 5-325 MG TABLET) 1 Each Tablet 1-2 EACH PO Q6H for PAIN, #30 TAB 0 Refills no more than 6 tablets in a 24 hour period Prov: ZITA PERRY MD 03/10/18 Patient Instructions: Acute Low Back Pain (ED) Problem Qualifiers Primary Impression: Back pain Back pain location: low back pain Chronicity: acute Back pain laterality: bilateral Sciatica presence: without sciatica Qualified Codes: M54.5 - Low back pain ZITA PERRY MD Mar 10, 2018 10:09
--- NOTE | 2018-03-10 11:35 | RADIOLOGY IMAGING REPORT ---
FACILITY: [facility] - [place] PATIENT NAME: Kike Miller : 1950 MR: [id number] V: [id number] EXAM DATE: ORDERING PHYSICIAN: ZITA PERRY TECHNOLOGIST: Location: [facility] [place] Patient: Kike Miller : 1950 Visit/Account:[id number] Date of Sevice: 03/10/2018 CHEST PA AND LAT COMPARISON: June 19, 2017. HISTORY: trauma FINDINGS: CARDIAC/VASC: Mild stable cardiomegaly. Unremarkable pulmonary vasculature. MEDIASTINUM: There is no abnormal widening. Postoperative changes are present. LUNGS/PLEURA: No pneumothorax. No significant pulmonary parenchymal abnormalities. No effusion or p leural thickening. BONES: No fracture or visible bony lesion. C-spine fusion plate near the cervicothoracic junction . No appreciable rib fractures within the limitations of chest x-ray technique. Multilevel bridging o steophytes, thoracic spine. OTHER:Negative. IMPRESSION: No radiographic evidence of acute traumatic chest injury. Report Dictated By: Garrison Hammer at 03/10/2018 11:29 AM Report E-Signed By: Garrison Hammer at 03/10/2018 11:31 AM WSN:[id number]
--- NOTE | 2018-03-10 11:37 | RADIOLOGY IMAGING REPORT ---
FACILITY: [facility] PATIENT NAME: Kike Miller : 1950 MR: [id number] V: [id number] EXAM DATE: ORDERING PHYSICIAN: ZITA PERRY TECHNOLOGIST: Location: [facility] Patient: Kike Miller : 1950 Visit/Account:[id number] Date of Sevice: 03/10/2018 BILATERAL RIBS COMPARISON: PA lateral chest x-ray same date. HISTORY: trauma TECHNIQUE: 4 views of the right and left lower ribs were obtained. FINDINGS: BONES: No acute rib fractures or focal rib lesions. Degenerative changes, visualized spine. SOFT TISSUES: Negative. No visible soft tissue swelling. OTHER: Visualized lungs are unremarkable for non-dedicated technique. Postoperative changes in the m ediastinum. IMPRESSION: No acute right or left rib fractures. Report Dictated By: Garrison Hammer at 03/10/2018 11:31 AM Report E-Signed By: Garrison Hammer at 03/10/2018 11:33 AM WSN:[id number]
--- NOTE | 2018-03-10 11:39 | RADIOLOGY IMAGING REPORT ---
FACILITY: [facility] - [place] PATIENT NAME: Kike Miller : 1950 MR: [id number] V: [id number] EXAM DATE: ORDERING PHYSICIAN: ZITA PERRY TECHNOLOGIST: Location: [facility] Patient: Kike Miller : 1950 Visit/Account:[id number] Date of Sevice: 03/10/2018 THORACIC SPINE 3 VIEWS COMPARISON: None. HISTORY: trauma TECHNIQUE: Thoracic spine radiographs (3 views including a lateral swimmer's view) FINDINGS: ALIGNMENT: Normal alignment. VERTEBRAL BODIES: Intact vertebral body heights without fracture or osseous lesion. Moderate later al endplate spurring and multilevel bridging osteophytes anteriorly throughout the thoracic spine. Th e lower C-spine fusion plate is noted. DISC SPACES: No significant disc space narrowing. OTHER: Visualized ribs are unremarkable. IMPRESSION: No acute fracture or malalignment in the thoracic spine. Report Dictated By: Garrison Hammer at 03/10/2018 11:33 AM Report E-Signed By: Garrison Hammer at 03/10/2018 11:34 AM WSN:[id number]
--- NOTE | 2018-03-10 11:40 | RADIOLOGY IMAGING REPORT ---
FACILITY: [facility] PATIENT NAME: Kike Miller : 1950 MR: [id number] V: [id number] EXAM DATE: ORDERING PHYSICIAN: ZITA PERRY TECHNOLOGIST: Location: [facility] Patient: Kike Miller : 1950 Visit/Account:[id number] Date of Sevice: 03/10/2018 LUMBAR SPINE 2 OR 3 VIEW COMPARISON: None. HISTORY: trauma TECHNIQUE: Lumbar spine radiographs (3 views) FINDINGS: ALIGNMENT: First-degree anterolisthesis of about 5 mm at L5-S1. There are 5 lumbar vertebral bodies. VERTEBRAL BODIES: Intact vertebral body heights without fracture or osseous lesion. Moderate anter ior, mild lateral endplate spurring throughout the lumbar spine with moderate L4-5 and L5-S1 facet claus int hypertrophy bilaterally. DISC SPACES: Mild L5-S1, moderate L1-2 and L2-3 disc height loss. SACROILIAC JOINTS: Unremarkable. OTHER: Negative. IMPRESSION: First-degree anterolisthesis of about 5 mm at L5-S1. No acute fractures in the lumbar spine. Moderate degenerative changes. Report Dictated By: Garrison Hammer at 03/10/2018 11:34 AM Report E-Signed By: Garrison Hammer at 03/10/2018 11:35 AM WSN:[id number]
[2018-03-10] MEDS ORDERED: OXYC-865 PO (11:55)
[2018-03-10] MEDS ORDERED: ONDA4TAB97 PO (11:55)
[2018-03-10] MEDS ORDERED: METH-543 PO (11:55)
== END 2018-03-10 12:22 | disposition home or self-care (01) ==
LOC: ER 10:10
DX: M54.5 Low back pain (principal); M54.6 Pain in thoracic spine
CPT/HCPCS: 71046; 71111; 72072; 72100; 81001; 99284; A9270

== ENCOUNTER → 2018-05-18 | Outpatient (CLI) | payer MEDICARE, BC ==
[~2018-05-18] MED LIST changes: +METH-543 PO; +OXYC-865 PO
--- NOTE | 2018-05-18 16:01 | RADIOLOGY IMAGING REPORT ---
FACILITY: [facility] [place] PATIENT NAME: Kike Miller : 1950 MR: [id number] V: [id number] EXAM DATE: ORDERING PHYSICIAN: GUERITA FRANCES TECHNOLOGIST: Location: [facility] - [place], [place] Patient: Kike Miller : 1950 Visit/Account:[id number] Date of Sevice: 05/18/2018 CT CHEST W/O CONTRAST History: Fell 2 months ago abdomen and chest pain worse on the right TECHNIQUE: Contiguous axial images were performed through the chest to the level of the adrenal gla nds. No IV contrast was administered. Coronal and sagittal reformatting was also performed.Dose Lower ing Technique One of the following dose optimization techniques was utilized in the performance of this exam: Autom ated exposure control; adjustment of the mA and/or kV according to the patient's size; or use of an i terative reconstruction technique. Specific details can be referenced in the facility's radiology C T exam operational policy. COMPARISON STUDIES: October 11, 2017 and 02/23/2008 Lungs / Pleura: There is no evidence of pulmonary consolidation, pleural effusion, pneumothorax or pneumomediastinum. There is a tiny 2 mm intrafissural nodule in the major fissure on the left appear s stable and is of doubtful significance. There is a 3 mm noncalcified nodule lateral right middle l obe also stable since 02/23/2008. Mediastinum/nodes: There are prominent mediastinal lymph nodes many of which appear stable when comp ared the prior study although there has been enlargement of several of the pretracheal lymph nodes. A pretracheal lymph node at the level of the aortic arch now measures 1.3 x 0.7 previously 1 x 0.7 cm . Pretracheal lymph node just above the aicha measures 2 x 1.5 cm previously 1.7 x 1.4 cm Heart and vessels: There are postsurgical changes from coronary bypass. Advanced coronary artery ca lcifications again seen Musculoskeletal / Body wall: There is an oblique fracture through the T6 vertebral body that extend s from the superior endplate to the inferior endplate that was not present on the prior study. There is however sclerosis seen along the fracture line suggesting this is a subacute injury. No subluxat ions are identified. No fractures through the posterior elements are seen. Sternotomy sutures are n oted. Incompletely imaged is anterior fusion of the cervical spine. Extensive spondylotic changes o f the thoracic spine are present.. There are several healing right-sided rib fractures Upper abdomen: Post surgical changes from a cholecystectomy IMPRESSION: Prominent mediastinal lymph nodes are again noted. Many of these appear stable when compared the khris or study although there has been a slight increase and several the pretracheal lymph nodes. Although this could be reactive short-term follow-up recommended There is an oblique fracture through the T6 vertebral body that extends from the superior endplate to the inferior endplate was not present on the prior study. There is however sclerosis seen along the fracture line suggesting this is a subacute injury. No subluxations are identified and there are no fractures to the posterior elements. Several healing right-sided rib fractures Report Dictated By: Valeria Dumont MD at 05/18/2018 2:55 PM Report E-Signed By: Valeria Dumont MD at 05/18/2018 3:56 PM JUANN:[email or web address]
--- NOTE | 2018-05-18 16:07 | RADIOLOGY IMAGING REPORT ---
FACILITY: [facility] PATIENT NAME: Kike Miller : 1950 MR: [id number] V: [id number] EXAM DATE: ORDERING PHYSICIAN: GUERITA FRANCES TECHNOLOGIST: Location: [facility] Patient: Kike Miller : 1950 Visit/Account:[id number] Date of Sevice: 05/18/2018 CT ABDOMEN WITHOUT CONTRAST CLINICAL INFORMATION: Fell 2 months ago with abdomen and chest pain worse on the right side TECHNIQUE: Axial CT images were obtained through the abdomen without administration of IV contrast. Reformatted coronal and sagittal images were also obtained.Dose Lowering Technique One of the following dose optimization techniques was utilized in the performance of this exam: Autom ated exposure control; adjustment of the mA and/or kV according to the patient's size; or use of an i terative reconstruction technique. Specific details can be referenced in the facility's radiology C T exam operational policy. COMPARISON: May 04, 2016 FINDINGS: Lower lung kemp: Limited views lower lung field are unremarkable. Evaluation of the solid organs of the abdomen is limited without IV contrast. Liver: Unremarkable Biliary: Postsurgical changes from a cholecystectomy Pancreas: Normal appearance. Spleen: Normal appearance. Adrenal glands: Unremarkable. Kidneys / retroperitoneum: Again is a 2.5 cm cyst lower pole of the right kidney. Again noted is pto sis of the left kidney which is rotated and contains several cysts largest measuring 3 cm in diameter Bowel / peritoneum / mesenteries: There are postsurgical changes from an appendectomy Lymph node assessment: There shotty retroperitoneal lymph nodes Vessels: Mild atherosclerotic disease in the abdomen atherosclerotic calcification seen throughout a nonaneurysmal abdominal aorta and branches. Musculoskeletal / Body wall: There spondylotic changes of the lumbar spine IMPRESSION: 1. 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
== END ==
LOC: CT 12:24
PROVIDERS: ATTEND Family Medicine
DX: S22.41XA Multiple fractures of ribs, right side, initial encounter for closed fracture (principal); R59.9 Enlarged lymph nodes, unspecified; R07.82 Intercostal pain; Z90.49 Acquired absence of other specified parts of digestive tract
CPT/HCPCS: 71250; 74150